=== PATIENT | male | born 1945 | race Caucasian/White ===

== ENCOUNTER 2018-09-10 09:29 | Outpatient (REF) | payer MEDICARE, BC, SELFPAY ==
[2018-09-10 19:32] LABS: HCT 41.1 % (40.0-50.0); HGB 13.6 g/dL (13.5-17.5); Mean Corp. HGB Concentration 33.1 g/dL (32.0-36.0); Mean Corpuscular Hemoglobin 25.9 pg (27.0-33.0); Mean Corpuscular Volume 78.3 fL (80-95); Mean Platelet Volume 10.2 fL (8.0-11.0); Platelet Count 290 x1000/uL (130-400); RBC 5.25 m/cumm (4.50-6.00); RBC Distribution Width 14.2 % (11.8-14.1); White Blood Cell Count 4.82 k/cumm (4.4-10.8)
[2018-09-10 19:45] LABS: Troponin I 0.03 ng/mL (0.00-0.06)
== END 2018-09-10 09:49 ==
LOC: NCHCN 09:29
PROVIDERS: PCP Internal Medicine; Visit Provider Physician Assistant Medical
DX: R07.9 Chest pain, unspecified (principal); R42 Dizziness and giddiness
CPT/HCPCS: 85027; 84484

== ENCOUNTER 2019-10-16 09:24 | Outpatient (REF) | payer MEDICARE, BC, SELFPAY ==
[2019-10-16 19:04] LABS: C-Reactive Protein 0.14 mg/dL (0.0-0.3)
[2019-10-16 19:35] LABS: ESR 8 mm/hr (1-20)
== END 2019-10-16 09:44 ==
LOC: NCHCN 09:24
PROVIDERS: PCP Internal Medicine; Visit Provider Internal Medicine
DX: M79.10 Myalgia, unspecified site (principal); M54.2 Cervicalgia
CPT/HCPCS: 85652; 86140

== ENCOUNTER 2020-06-21 19:05 | Outpatient (REF) | payer MEDICARE, BC, SELFPAY ==
[2020-06-21 15:30] LABS: Abs Immature Grans 0.04 10^3/uL (0.0-0.06); Absolute Basophil Count 0.05 10^3/uL (0.0-0.2); Absolute Eosinophil Count 0.11 10^3/uL (0.0-0.7); Absolute Lymphocyte Count 1.82 10^3/uL (1.2-3.4); Absolute Monocyte Count 0.72 10^3/uL (0.1-0.8); Absolute Neutrophil Count 5.04 10^3/uL (1.2-6.7); Basophils % 0.6; Eosinophils % 1.4; HCT 42.7 % (40.0-50.0); HGB 14.3 g/dL (13.5-17.5); Immature Grans % 0.5; Lymphocytes % 23.4; MCH 26.4 pg (27.0-33.0); MCHC 33.5 % (32.0-36.0); MCV 78.9 fL (80-95); Monocytes % 9.3; Neutrophils % 64.8; Nucleated RBC 0 %; Platelet Count 355 10^3/uL (130-400); RBC 5.41 10^6/uL (4.36-5.78); RDW 12.9 % (11.8-14.1); RDW-SD 36.6 fL; WBC 7.78 10^3/uL (4.4-10.8)
[2020-06-21 15:41] LABS: C-Reactive Protein 0.29 mg/dL (0.0-0.3); Uric Acid 6.6 mg/dL (3.5-7.2)
== END 2020-06-21 19:25 ==
LOC: NCHCN 19:05
PROVIDERS: PCP Internal Medicine
DX: M79.672 Pain in left foot (principal)
CPT/HCPCS: 84550; 85025; 86140

== ENCOUNTER 2021-01-20 16:55 | Outpatient (REF) | payer MEDICARE, BC, SELFPAY ==
[2021-01-22 16:01] LABS: COVID-19 RT-PCR UVMMC Result Negative (Negative)
== END 2021-01-20 16:56 | disposition home or self-care (01) ==
LOC: NCHCN 16:55
PROVIDERS: PCP Internal Medicine; Visit Provider Internal Medicine
DX: Z20.822 Contact with and (suspected) exposure to COVID-19 (principal)
CPT/HCPCS: U0003

== ENCOUNTER 2021-10-12 18:54 | Outpatient (REF) | payer MEDICARE, SELFPAY ==
[2021-10-12 20:23] LABS: HCT 43.7 % (40.0-50.0); MCH 25.6 pg (27.0-33.0); MCV 79.9 fL (80-95); MPV 9.9 fL (8.0-11.0); Platelet Count 281 10^3/uL (130-400); RBC 5.47 10^6/uL (4.36-5.78); RDW 13.9 % (11.8-14.1); RDW-SD 40.5 fL; WBC 5.22 10^3/uL (4.4-10.8)
[2021-10-12 21:03] LABS: ALT 48 U/L (16-63); Albumin 3.6 g/dL (3.4-5.0); BUN 18 mg/dL (7-18); CREATININE 1.5 mg/dL (0.70-1.30); Calcium 8.6 mg/dL (8.5-10.1); Chloride 106 mmol/L (98-107); Estimated GFR 45.62 (mL/min/1.73m2); Glucose 97 mg/dL (74-106); LDL CHOLESTEROL 55 mg/dL (<100); Potassium 4.5 mmol/L (3.5-5.1); Sodium 140 mmol/L (136-145)
[2021-10-12 21:31] LABS: PHOSPHORUS 3.4 mg/dL (2.6-4.7)
== END 2021-10-12 18:55 | disposition home or self-care (01) ==
LOC: NCHCN 18:54
PROVIDERS: PCP Internal Medicine; Visit Provider Internal Medicine
DX: R60.0 Localized edema; I51.81 Takotsubo syndrome; I48.91 Unspecified atrial fibrillation; I10 Essential (primary) hypertension; J44.9 Chronic obstructive pulmonary disease, unspecified
CPT/HCPCS: 80069; 83721; 85027; 84460

== ENCOUNTER 2022-04-10 21:12 | Outpatient (REF) | payer MEDICARE, SELFPAY ==
[2022-04-10 19:52] LABS: HCT 45.3 % (40.0-50.0); MCH 26.7 pg (27.0-33.0); MCHC 33.1 % (32.0-36.0); MCV 81 fL (80-95); MPV 10.1 fL (8.0-11.0); Platelet Count 311 10^3/uL (130-400); RBC 5.61 10^6/uL (4.36-5.78); RDW 13.5 % (11.8-14.1); RDW-SD 39.8 fL; WBC 5.88 10^3/uL (4.4-10.8)
[2022-04-10 20:18] LABS: ALT 43 U/L (16-63); BUN 23 mg/dL (7-18); CREATININE 1.3 mg/dL (0.70-1.30); Calcium 9.3 mg/dL (8.5-10.1); Calculated LDL 48 mg/dL (<100); Chloride 106 mmol/L (98-107); Cholesterol 121 mg/dL (<200); Estimated GFR 56.93 (mL/min/1.73m2); Glucose 88 mg/dL (74-106); HDL Cholesterol 45 mg/dL (40-60); Potassium 4.5 mmol/L (3.5-5.1); Sodium 140 mmol/L (136-145); Triglyceride 144 mg/dL (<150)
[2022-04-10 20:33] LABS: Creatine Kinase 402 U/L (39-308)
[2022-04-11 22:26] LABS: PSA, Diagnostic <0.1 ng/mL (<=6.5)
== END 2022-04-10 21:13 | disposition home or self-care (01) ==
LOC: NCHCN 21:12
PROVIDERS: PCP Internal Medicine; Visit Provider Internal Medicine
DX: I10 Essential (primary) hypertension (principal); I51.81 Takotsubo syndrome; R60.0 Localized edema; Z85.46 Personal history of malignant neoplasm of prostate
CPT/HCPCS: 80048; 80061; 82550; 85027; 84153; 84460

== ENCOUNTER 2022-10-09 14:12 | Outpatient (REF) | payer MEDICARE, SELFPAY ==
[2022-10-09 20:18] LABS: HCT 46.2 % (40.0-50.0); HGB 15.2 g/dL (13.5-17.5); MCH 26.2 pg (27.0-33.0); MCHC 32.9 % (32.0-36.0); MCV 80 fL (80-95); Platelet Count 322 10^3/uL (130-400); RDW 13.9 % (11.8-14.1)
[2022-10-09 20:34] LABS: ALT 52 U/L (16-63); AST 44 U/L (15-37); Anion Gap 6.5 mmol/L (3-11); BUN 19 mg/dL (7-18); Bilirubin, Total 0.5 mg/dL (0.2-1.0); CO2 26.5 mmol/L (21.0-32.0); CREATININE 1.4 mg/dL (0.70-1.30); Chloride 106 mmol/L (98-107); Estimated GFR 52.09 (mL/min/1.73m2); Glucose 92 mg/dL (74-106); Potassium 4.6 mmol/L (3.5-5.1); Sodium 139 mmol/L (136-145); Total Protein 7.3 g/dL (6.4-8.2)
[2022-10-09 20:46] LABS: Albumin 3.6 g/dL (3.4-5.0); Alkaline Phosphatase 62 U/L (46-116)
== END 2022-10-09 14:13 | disposition home or self-care (01) ==
LOC: NCHCN 14:12
PROVIDERS: PCP Internal Medicine; Visit Provider Internal Medicine
DX: I48.91 Unspecified atrial fibrillation (principal); Z79.01 Long term (current) use of anticoagulants
CPT/HCPCS: 80053; 85027

== ENCOUNTER 2023-04-11 12:06 | Outpatient (REF) | payer MEDICARE, SELFPAY ==
[2023-04-11 20:51] LABS: Abs Immature Grans 0.01 10^3/uL (0.0-0.06); Absolute Basophil Count 0.05 10^3/uL (0.0-0.2); Absolute Eosinophil Count 0.04 10^3/uL (0.0-0.7); Absolute Lymphocyte Count 1.67 10^3/uL (1.2-3.4); Absolute Monocyte Count 0.76 10^3/uL (0.1-0.8); Absolute Neutrophil Count 4.76 10^3/uL (1.2-6.7); Basophils % 0.7; Eosinophils % 0.5; HGB 15.7 g/dL (13.5-17.5); Immature Grans % 0.1; Lymphocytes % 22.9; MCHC 32.7 % (32.0-36.0); MCV 83 fL (80-95); Monocytes % 10.4; Neutrophils % 65.4; Platelet Count 293 10^3/uL (130-400); RBC 5.82 10^6/uL (4.36-5.78); RDW 13.2 % (11.8-14.1); RDW-SD 39.6 fL; WBC 7.29 10^3/uL (4.4-10.8)
[2023-04-11 21:08] LABS: ALT 41 U/L (16-63); Anion Gap 9.1 mmol/L (3-11); BUN 22 mg/dL (7-18); CO2 25.9 mmol/L (21.0-32.0); CREATININE 1.4 mg/dL (0.70-1.30); Calcium 9.1 mg/dL (8.5-10.1); Chloride 107 mmol/L (98-107); Estimated GFR 51.77 (mL/min/1.73m2); Glucose 79 mg/dL (74-106); LDL CHOLESTEROL 57 mg/dL (<100); Potassium 4.6 mmol/L (3.5-5.1); Sodium 142 mmol/L (136-145)
[2023-04-12 20:43] LABS: PSA, Diagnostic <0.1 ng/mL (<=6.5)
== END 2023-04-11 12:07 | disposition home or self-care (01) ==
LOC: NCHCN 12:06
PROVIDERS: PCP Internal Medicine; Visit Provider Internal Medicine
DX: I51.81 Takotsubo syndrome (principal); Z85.46 Personal history of malignant neoplasm of prostate; I48.91 Unspecified atrial fibrillation; Z00.00 Encounter for general adult medical examination without abnormal findings
CPT/HCPCS: 80048; 83721; 84153; 84460; 85025

== ENCOUNTER 2024-04-02 12:48 | Outpatient (REF) | payer MEDICARE, SELFPAY ==
[2024-04-02 19:45] LABS: HCT 46.6 % (40.0-50.0); MCH 28.2 pg (27.0-33.0); MCHC 34.3 % (32.0-36.0); MCV 82 fL (80-95); MPV 10.4 fL (8.0-11.0); Platelet Count 279 10^3/uL (130-400); RBC 5.67 10^6/uL (4.36-5.78); RDW 13.3 % (11.8-14.1); RDW-SD 39.7 fL; WBC 5.44 10^3/uL (4.4-10.8)
[2024-04-02 20:27] LABS: ALT 28 U/L (16-63); Anion Gap 11.1 mmol/L (3-11); BUN 22 mg/dL (7-18); CO2 25.9 mmol/L (21.0-32.0); CREATININE 1.4 mg/dL (0.70-1.30); Calcium 9.4 mg/dL (8.5-10.1); Calculated LDL 51 mg/dL (<100); Chloride 105 mmol/L (98-107); Cholesterol 129 mg/dL (<200); Creatine Kinase 306 U/L (39-308); Estimated GFR 51.45 (mL/min/1.73m2); Glucose 97 mg/dL (74-106); HDL Cholesterol 55 mg/dL (40-60); Potassium 4.4 mmol/L (3.5-5.1); Sodium 142 mmol/L (136-145); Triglyceride 117 mg/dL (<150)
[2024-04-04 09:42] LABS: PSA, Diagnostic <0.1 ng/mL (<=6.5)
== END 2024-04-02 12:49 | disposition home or self-care (01) ==
LOC: NCHCN 12:48
PROVIDERS: PCP Internal Medicine; Visit Provider Internal Medicine
DX: I10 Essential (primary) hypertension (principal); Z85.46 Personal history of malignant neoplasm of prostate
CPT/HCPCS: 80048; 80061; 82550; 85027; 84153; 84460

== ENCOUNTER 2024-05-14 15:18 | Outpatient (REF) | payer MEDICARE, SELFPAY ==
--- NOTE | 2024-05-14 14:20 | SKI_PTH ---
PATIENT: Larry Ugalde LOC: [facility] U#:[id number] AGE/SX: 79/M ROOM: RE05/14/[address]: Larry Alexander : 1945 BED: DIS: 05/14/2024 SPEC #: [id number] RECD: 05/14/24 17:36 STATUS: TERESA REJamison #: [id number] MARY: 05/14/24 14:[address]: Larry Alexander DEPT: Surgical Specimen RECD BY: Keely Sinha Tissues: 1 - SKIN BIOPSY(SHAVE/PUNCH) Procedures: SKIN LEVEL 4 Comments: [id number]
== END 2024-05-14 15:19 | disposition home or self-care (01) ==
LOC: NCHCN 15:18
PROVIDERS: PCP Internal Medicine; Visit Provider Internal Medicine
DX: L82.0 Inflamed seborrheic keratosis (principal)
CPT/HCPCS: 88305

== ENCOUNTER 2024-11-03 12:12 | Outpatient (REF) | payer MEDICARE, SELFPAY ==
[2024-11-03 20:15] LABS: HCT 49.8 % (40.0-50.0); HGB 16.5 g/dL (13.5-17.5); MCH 28.2 pg (27.0-33.0); MCHC 33.1 % (32.0-36.0); MCV 85 fL (80-95); MPV 10.1 fL (8.0-11.0); Platelet Count 254 10^3/uL (130-400); RBC 5.86 10^6/uL (4.36-5.78); RDW 12.7 % (11.8-14.1); RDW-SD 39.5 fL; WBC 4.38 10^3/uL (4.4-10.8)
[2024-11-03 20:26] LABS: Uric Acid 5.6 mg/dL (3.5-7.2)
== END 2024-11-03 12:13 | disposition home or self-care (01) ==
LOC: NCHCN 12:12
PROVIDERS: PCP Internal Medicine; Visit Provider Internal Medicine
DX: Z51.81 Encounter for therapeutic drug level monitoring (principal)
CPT/HCPCS: 85027; 84550

== ENCOUNTER 2024-11-10 13:20 | Outpatient (CLI) | payer MEDICARE, SELFPAY ==
--- NOTE | 2024-11-10 14:00 | DI.RAD_ITS ---
Exam(s) XR ELBOW LT COMPLETE EXAM: XR ELBOW LT COMPLETE CLINICAL HISTORY: injury/pop lifting mower deck. TECHNIQUE: 2D digital imaging was performed. Three views. COMPARISON: No exams were available for comparison FINDINGS: BONES: No acute fracture is present. No bony destructive lesion is seen. JOINTS: The elbow is normally aligned. No joint effusion is seen. SOFT TISSUE: Swelling at the medial epicondyle. IMPRESSION: No evidence of fracture. The preliminary [facility] report was reviewed. DATA REPOSITORY: RADIATION DOSE DELIVERED:
--- NOTE | 2024-11-10 14:00 | DI.RAD_ITS ---
Exam(s) XR WRIST LT COMPLETE EXAM: XR WRIST LT COMPLETE CLINICAL HISTORY: popping and pain/rotational pain. TECHNIQUE: 2D digital imaging was performed. Three views. COMPARISON: No exams were available for comparison FINDINGS: BONES: No acute fracture is present. No bony destructive lesion is seen. There is a smoothly marginat ed density seen on the lateral view adjacent to the volar aspect of the distal radius which may be se condary to old trauma. JOINTS: The carpal bones are normally aligned. SOFT TISSUE: Normal. IMPRESSION: No evidence of acute fracture. The preliminary [facility] report was reviewed. DATA REPOSITORY: RADIATION DOSE DELIVERED:
--- NOTE | 2024-11-10 14:44 | DI.[facility]_ITS ---
PROCEDURE INFORMATION: Exam: XR Left Wrist Exam date and time: 11/10/2024 2:09 PM Age: 79 years old Clinical indication: Injury or trauma; Other: Lifting/strain TECHNIQUE: Imaging protocol: Radiologic exam of the left wrist. Views: 3 or more views. COMPARISON: No relevant prior studies available. FINDINGS: Bones/joints: No acute fracture or dislocation. 5 mm ossified density along the volar aspect of the distal radius on lateral view, likely an accessory ossicle or old fracture fragment. No dislocation. Soft tissues: Unremarkable. IMPRESSION: No acute findings. Dictated and Authenticated by: Pratik Guajardo MD. Orderin Roselyn Montesinos MD
--- NOTE | 2024-11-10 14:44 | DI.[facility]_ITS ---
PROCEDURE INFORMATION: Exam: XR Left Elbow Exam date and time: 11/10/2024 2:13 PM Age: 79 years old Clinical indication: Pain; Elbow; Left TECHNIQUE: Imaging protocol: Radiologic exam of the left elbow. Views: 3 or more views. COMPARISON: CR XR WRIST LT COMPLETE 11/10/2024 2:09 PM FINDINGS: Bones/joints: No acute fracture or dislocation. Joint spaces maintained. Soft tissues: Elbow swelling. IMPRESSION: No acute fracture. Dictated and Authenticated by: Pratik Guajardo MD. Orderin Roselyn Montesinos MD
== END 2024-11-10 13:40 ==
LOC: DI 13:21
PROVIDERS: PCP Internal Medicine; Visit Provider Registered Nurse
DX: S59.902A Unspecified injury of left elbow, initial encounter (principal); S69.92XA Unspecified injury of left wrist, hand and finger(s), initial encounter; X58.XXXA Exposure to other specified factors, initial encounter
CPT/HCPCS: 73080; 73110

== ENCOUNTER 2025-04-08 21:08 | Outpatient (REF) | payer MEDICARE, SELFPAY ==
[2025-04-08 20:45] LABS: Abs Immature Grans 0.02 10^3/uL (0.0-0.06); HCT 48.2 % (40.0-50.0); HGB 15.8 g/dL (13.5-17.5); Immature Grans % 0.3 %; MCH 27.4 pg (27.0-33.0); MCHC 32.8 % (32.0-36.0); MCV 84 fL (80-95); MPV 9.8 fL (8.0-11.0); Platelet Count 265 10^3/uL (130-400); RBC 5.76 10^6/uL (4.36-5.78); RDW 12.7 % (11.8-14.1); RDW-SD 38.5 fL; WBC 5.72 10^3/uL (4.4-10.8)
[2025-04-08 21:02] LABS: ALT 84 U/L (16-63); AST 57 U/L (15-37); Albumin 3.6 g/dL (3.4-5.0); Alkaline Phosphatase 69 U/L (46-116); Anion Gap 5.7 mmol/L (3-11); BUN 22 mg/dL (7-18); Bilirubin, Total 0.6 mg/dL (0.2-1.0); CO2 31.3 mmol/L (21.0-32.0); Calcium 8.9 mg/dL (8.5-10.1); Calculated LDL 61 mg/dL (<100); Chloride 102 mmol/L (98-107); Cholesterol 132 mg/dL (<200); Estimated GFR 55.88 (mL/min/1.73m2); Glucose 96 mg/dL (74-106); HDL Cholesterol 46 mg/dL (>or=40); Potassium 4.3 mmol/L (3.5-5.1); Sodium 139 mmol/L (136-145); Total Protein 7.3 g/dL (6.4-8.2); Triglyceride 127 mg/dL (<150)
[2025-04-09 17:51] LABS: PSA, Diagnostic <0.1 ng/mL (<=6.5)
== END 2025-04-08 21:09 | disposition home or self-care (01) ==
LOC: NCHCN 21:08
PROVIDERS: PCP Internal Medicine; Visit Provider Nurse Practitioner Family
DX: I51.81 Takotsubo syndrome (principal); Z85.46 Personal history of malignant neoplasm of prostate; I10 Essential (primary) hypertension; N18.30 Chronic kidney disease, stage 3 unspecified
CPT/HCPCS: 80053; 80061; 84153; 85025